=== PATIENT | male | born 1950 | race Caucasian/White ===

== ENCOUNTER → 2020-12-15 | Day surgery (SDC) | payer MEDICARE ==
[~2020-12-15] VITALS: Ht 167.6 cm; Wt 63.7 kg
[~2020-12-15] MED LIST: ASPIRIN81 MG PO; CIPRO500 MG PO; CLEOCIN300 MG PO; COZAAR50 MG PO; OXYCODON-ACETA1 EAC1 PO; TEGRETOL200 MG PO; TOPROL XL 50 MG50 MG PO
[2020-12-15 09:19] LABS: CREATININE 0.75 mg/dL (0.67-1.17); POTASSIUM 4.1 mmol/L (3.5-5.1)
== END | disposition home or self-care (01) ==
LOC: FAS 07:49
PROVIDERS: Surgery
DX: K40.90 Unilateral inguinal hernia, without obstruction or gangrene, not specified as recurrent (principal); G89.29 Other chronic pain; I25.10 Atherosclerotic heart disease of native coronary artery without angina pectoris; I10 Essential (primary) hypertension; F10.10 Alcohol abuse, uncomplicated; F41.9 Anxiety disorder, unspecified; F32.A Depression, unspecified; F17.210 Nicotine dependence, cigarettes, uncomplicated; N40.0 Benign prostatic hyperplasia without lower urinary tract symptoms; M19.90 Unspecified osteoarthritis, unspecified site; E78.00 Pure hypercholesterolemia, unspecified; Z86.79 Personal history of other diseases of the circulatory system; Z79.82 Long term (current) use of aspirin; Z79.899 Other long term (current) drug therapy; Z88.2 Allergy status to sulfonamides
CPT/HCPCS: 36415; 80048; 93005; C1781; J0690; J2250; J2405; J2704; J3010; J7120

== ENCOUNTER 2021-03-31 12:44 | Emergency (ER) | payer OTHER ==
[2021-03-31 13:22] LABS: BASOPHIL 0.5 % (0-2); EOSINOPHIL 2.6 % (0-7); HCT 40.3 % (42.0-52.0); HGB 13.7 g/dl (13.2-18.0); LYMPHOCYTE 12.2 % (15-48); MCH 29.5 pg (25.0-31.0); MCV 86.9 fL (78.0-100.0); NEUTROPHIL 71.8 % (41-80); NRBC 0; PLT 361 K/uL (150-400); RBC 4.64 M/uL (4.70-6.00); RDW 13.3 % (11.5-14.0); WBC 10.4 K/uL (4.0-10.5)
[2021-03-31 13:32] LABS: INR 1.04 (0.9-1.2)
[2021-03-31 13:45] LABS: ALBUMIN 2.2 g/dL (3.4-5.0); BILIRUBIN - TOTAL 0.3 mg/dL (0.2-1.0); BUN/CREAT RATIO (CALC) 14.9 RATIO; CREATININE 0.74 mg/dL (0.67-1.17); GLOBULIN (CALCULATION) 4.2 g/dL; POTASSIUM 3.4 mmol/L (3.5-5.1); TOTAL PROTEIN 6.4 g/dL (6.4-8.2)
[2021-03-31 13:58] LABS: CORONAVIRUS 2019 SARS-COV-2 NEGATIVE (NEGATIVE); INFLUENZA A NAA NEGATIVE (NEGATIVE)
[2021-03-31 15:02] LABS: BILIRUBIN NEGATIVE (NEGATIVE); BLOOD TRACE-INTACT Ery/uL (NEGATIVE); CLARITY CLEAR (CLEAR); COLOR YELLOW (YELLOW); GLUCOSE (U) NORMAL (NORMAL); LEUKOCYTES NEGATIVE Leu/uL (NEGATIVE); NITRITE NEGATIVE (NEGATIVE); PROTEIN NEGATIVE (NEGATIVE); UROBILINOGEN >=8.0 mg/dL (0.2-1.0); pH 6.5 (5.0-9.0)
[2021-03-31] MEDS ORDERED: LEVAQUIN500 MG PO (15:07)
[2021-03-31 15:12] LABS: BACTERIA TRACE; URINARY WBC RARE
== END 2021-03-31 15:42 | disposition home or self-care (01) ==
LOC: FER 12:44
PROVIDERS: Physician Assistant
DX: J18.9 Pneumonia, unspecified organism (principal); R07.89 Other chest pain; I25.10 Atherosclerotic heart disease of native coronary artery without angina pectoris; I10 Essential (primary) hypertension; F17.210 Nicotine dependence, cigarettes, uncomplicated; Z20.822 Contact with and (suspected) exposure to COVID-19; Z95.5 Presence of coronary angioplasty implant and graft; Z88.1 Allergy status to other antibiotic agents; Z88.2 Allergy status to sulfonamides
CPT/HCPCS: 36415; 71045; 80053; 81001; 83880; 84484; 85025; 85610; 93005; U0002